=== PATIENT | male | born 1970 | race Caucasian/White ===

== ENCOUNTER 2018-07-10 08:56 | Inpatient (IN) | payer MEDICAID ==
[~2018-07-10] VITALS: Ht 185.4 cm; Wt 93.0 kg
[2018-07-10] VITALS (8 sets, daily range): BP systolic 77–130; BP diastolic 48–70; BMI 27.1
[2018-07-10 09:40] LABS: APPEARANCE TURBID (CLEAR); BILIRUBIN NEGATIVE (NEGATIVE); COLOR AMBER (YELLOW); GLUCOSE NEGATIVE (NEGATIVE); HEMATOCRIT 44.1 % (42.0-54.0); HEMOGLOBIN 15.4 g/dL (13.5-17.5); KETONE SMALL mg/dL (NEGATIVE); MCH 30.5 pg (26.0-34.0); MCHC 34.9 g/dL (31.0-37.0); MCV 87.3 fL (80.0-100.0); MEAN PLATELET VOLUME 8.7 fL (7.4-10.4); NITRITE NEGATIVE (NEGATIVE); PLATELET COUNT 354 10x3/uL (130-400); PROTEIN 3+ mg/dL (NEGATIVE); RBC 5.05 10x6/uL (4.20-6.10); RDW 13.2 % (11.5-14.5); SPECIFIC GRAVITY 1.025 (1.005-1.020); UROBILINOGEN NORMAL (NORMAL); WBC 21.5 10x3/uL (4.8-10.8)
[2018-07-10 09:47] LABS: BACTERIA MANY /hpf (NONE SEEN); EPITHELIAL CELLS RARE /hpf (0-5); RED CELLS - URINE >50 /hpf (0-5); WHITE CELLS - URINE >50 /hpf (0-5)
[2018-07-10 09:48] LABS: AMORPHOUS SEDIMENT >1+ /lpf (NONE SEEN); MUCUS <1+ /lpf (NONE SEEN)
[2018-07-10 09:55] LABS: ALBUMIN 3.3 g/dL (3.4-5.0); BILIRUBIN - TOTAL 0.62 mg/dL (0.2-1.3); CALCIUM 9.1 mg/dL (8.5-10.1); CARBON DIOXIDE 24.5 mmol/L (21.0-32.0); POTASSIUM - SERUM 4.5 mmol/L (3.5-5.1); PROTEIN - SERUM 7.8 g/dL (6.4-8.2)
[2018-07-10 10:30] LABS: EOSINOPHILS 1 % (0-7); LYMPHOCYTES 10 % (15-50); MONOCYTES 2 % (2-11); NEUTROPHILS 77 % (40-80); PLATELET ESTIMATE NORMAL
[2018-07-10] MEDS ORDERED: CHANTIX 1 MG TAB1 MG PO (12:52)
[2018-07-10] MEDS ORDERED: SEROQUEL100 MG PO (18:05)
[2018-07-11 04:00] VITALS: BP 118/78
[2018-07-11 08:51] VITALS: BP 98/59
[2018-07-11 08:58] LABS: BASOPHILS 0.1 % (0-2); IMMATURE GRANULOCYTES 0.3 % (0-5); MCH 29.6 pg (26.0-34.0); MCHC 34.1 g/dL (31.0-37.0); MCV 86.7 fL (80.0-100.0); MEAN PLATELET VOLUME 8.6 fL (7.4-10.4); MONOCYTES 7.2 % (2-11); NEUTROPHILS 73.4 % (40-80); PLATELET COUNT 285 10x3/uL (130-400); RBC 4.06 10x6/uL (4.20-6.10); RDW 12.9 % (11.5-14.5)
[2018-07-11 08:59] LABS: HEMATOCRIT 35.2 % (42.0-54.0); WBC 11.1 10x3/uL (4.8-10.8)
[2018-07-11 09:18] LABS: ALBUMIN 2.6 g/dL (3.4-5.0); ALKALINE PHOSPHATASE 69 U/L (46-116); ALT (SGPT) 17 U/L (10-68); CALCIUM 8.6 mg/dL (8.5-10.1); CARBON DIOXIDE 25.2 mmol/L (21.0-32.0); CHLORIDE - SERUM 106 mmol/L (98-107); GLUCOSE 89 mg/dL (74-106); PROTEIN - SERUM 6.2 g/dL (6.4-8.2); SODIUM 140 mmol/L (136-145)
[2018-07-11 09:26] LABS: CALC OSMOLALITY 279 mosm/kg (275-300); CREATININE - SERUM 1.1 mg/dL (0.6-1.3); UREA NITROGEN 17 mg/dL (7-18); eGFR NON AFRICAN AMERICAN 76 mL/min (90-120)
[2018-07-11 10:29] LABS: % SATURATION 10 % (15-55); IRON 27 ug/dl (35-150); TOTAL IRON BIND CAPACITY 253 ug/dl (260-445); UNSAT IRON BIND CAPACITY 226 ug/dl (150-375)
[2018-07-11 12:45] VITALS: BP 120/70; BP 172/84
[2018-07-11 13:06] VITALS: Ht 185.4 cm; Wt 93.0 kg
[2018-07-11 16:48] VITALS: BP 130/79
[2018-07-11 20:00] VITALS: BP 127/78
[2018-07-11 20:07] LABS: UDS - AMPHET NEGATIVE QUAL (NEGATIVE); UDS - BARB NEGATIVE QUAL (NEGATIVE); UDS - BENZO POSITIVE QUAL (NEGATIVE); UDS - COCAINE NEGATIVE QUAL (NEGATIVE); UDS - OPIATE POSITIVE QUAL (NEGATIVE); UDS - PCP NEGATIVE QUAL (NEGATIVE); UDS - THC NEGATIVE QUAL (NEGATIVE)
[2018-07-12 04:00] VITALS: BP 128/93
[2018-07-12 04:46] LABS: BASOPHILS 0.3 % (0-2); EOSINOPHILS 1.1 % (0-7); HEMOGLOBIN 11.5 g/dL (13.5-17.5); IMMATURE GRANULOCYTES 0.2 % (0-5); LYMPHOCYTES 27.9 % (15-50); MCH 29.2 pg (26.0-34.0); MCHC 33.8 g/dL (31.0-37.0); MCV 86.3 fL (80.0-100.0); MEAN PLATELET VOLUME 8.9 fL (7.4-10.4); MONOCYTES 6.9 % (2-11); NEUTROPHILS 63.6 % (40-80); PLATELET COUNT 305 10x3/uL (130-400); RBC 3.94 10x6/uL (4.20-6.10); RDW 12.6 % (11.5-14.5)
[2018-07-12 04:47] LABS: WBC 6.4 10x3/uL (4.8-10.8)
[2018-07-12 05:11] LABS: CALC OSMOLALITY 280 mosm/kg (275-300); CALCIUM 8.4 mg/dL (8.5-10.1); CHLORIDE - SERUM 106 mmol/L (98-107); GLUCOSE 113 mg/dL (74-106); POTASSIUM - SERUM 3.7 mmol/L (3.5-5.1); SODIUM 140 mmol/L (136-145); UREA NITROGEN 14 mg/dL (7-18); eGFR NON AFRICAN AMERICAN 85 mL/min (90-120)
[2018-07-12 10:55] VITALS: BP 137/75
[2018-07-12 11:21] LABS: FOLATE (FOLIC ACID) - SERUM 8.7 ng/mL (>3.0)
[2018-07-12 13:31] VITALS: BP 128/79
[2018-07-12 16:48] VITALS: BP 151/97
[2018-07-12 20:00] VITALS: BP 135/83
[2018-07-13 04:00] VITALS: BP 128/75
[2018-07-13 05:57] LABS: CALC OSMOLALITY 281 mosm/kg (275-300); CALCIUM 8.4 mg/dL (8.5-10.1); CARBON DIOXIDE 26.4 mmol/L (21.0-32.0); CHLORIDE - SERUM 107 mmol/L (98-107); CREATININE - SERUM 1.1 mg/dL (0.6-1.3); GLUCOSE 97 mg/dL (74-106); POTASSIUM - SERUM 3.8 mmol/L (3.5-5.1); SODIUM 141 mmol/L (136-145); UREA NITROGEN 14 mg/dL (7-18); eGFR NON AFRICAN AMERICAN 76 mL/min (90-120)
[2018-07-13 06:22] LABS: BASOPHILS 0.2 % (0-2); EOSINOPHILS 2.2 % (0-7); HEMATOCRIT 33.1 % (42.0-54.0); IMMATURE GRANULOCYTES 0.2 % (0-5); LYMPHOCYTES 35.9 % (15-50); MCH 28.9 pg (26.0-34.0); MCHC 33.2 g/dL (31.0-37.0); MCV 86.9 fL (80.0-100.0); MEAN PLATELET VOLUME 9.3 fL (7.4-10.4); NEUTROPHILS 54.5 % (40-80); RBC 3.81 10x6/uL (4.20-6.10); RDW 12.8 % (11.5-14.5)
[2018-07-13 06:26] LABS: PLATELET COUNT 388 10x3/uL (130-400)
[2018-07-13 08:48] VITALS: BP 112/82
[2018-07-13] MEDS ORDERED: PHENAZOPYRIDIN100 MG PO (10:54)
[2018-07-13] MEDS ORDERED: LEVAQUIN250 MG PO (10:54)
[2018-07-13] MEDS ORDERED: BACTRIM 400-801 TAB PO (10:54)
[2018-07-13] MEDS ORDERED: HYDROCODON-ACE1 EAC7 PO (10:59)
[2018-07-13] MEDS ORDERED: FLOMAX0.4 MG PO (10:59)
== END 2018-07-13 13:14 | disposition home or self-care (01) | DRG 690 ==
LOC: D.ER 08:56 → D.MS 10:13 → D.EDHOLD 10:13 → D.MS 11:14
PROVIDERS: Emergency Medicine; Internal Medicine Nephrology
DX: N30.90 Cystitis, unspecified without hematuria (principal); F17.203 Nicotine dependence unspecified, with withdrawal; N17.9 Acute kidney failure, unspecified; G89.29 Other chronic pain; D50.9 Iron deficiency anemia, unspecified; N40.1 Benign prostatic hyperplasia with lower urinary tract symptoms; N13.8 Other obstructive and reflux uropathy

== ENCOUNTER → 2018-08-06 18:43 | Outpatient (CLI) | payer MEDICAID ==
[2018-07-11 13:06] VITALS: BMI 27.0
[~2018-08-06 18:43] MED LIST: BACTRIM 400-801 TAB PO; CHANTIX 1 MG TAB1 MG PO; FLOMAX0.4 MG PO; HYDROCODON-ACE1 EAC7 PO; LEVAQUIN250 MG PO; PHENAZOPYRIDIN100 MG PO; SEROQUEL100 MG PO
== END | disposition home or self-care (01) ==
LOC: D.LABREF 18:43
DX: R31.9 Hematuria, unspecified (principal); D72.829 Elevated white blood cell count, unspecified

== ENCOUNTER → 2018-08-20 15:47 | Outpatient (CLI) | payer MEDICAID ==
[2018-07-11 13:06] VITALS: BMI 27.0
== END | disposition home or self-care (01) ==
LOC: D.MRI 15:47
DX: M25.561 Pain in right knee (principal)

== ENCOUNTER → 2018-09-19 16:38 | Outpatient (CLI) | payer MEDICAID ==
[2018-07-11 13:06] VITALS: BMI 27.0
[2018-09-19 17:31] LABS: URIC ACID 4.3 mg/dL (2.6-7.2)
[2018-09-19 17:58] LABS: ERYTHROCYTE SEDIMENTATION RATE 18 mm/hr (0-15)
== END | disposition home or self-care (01) ==
LOC: D.LABREF 16:38
PROVIDERS: Orthopaedic Surgery
DX: M13.0 Polyarthritis, unspecified (principal)